=== PATIENT | female | born 1950 | race Caucasian/White ===

== ENCOUNTER 2022-12-26 13:25 | Inpatient (IN) | payer MEDICARE, BC ==
[~2022-12-26] VITALS: Ht 160 cm; Wt 56.7 kg
[2022-12-26 14:16] VITALS: BP 130/47
[2022-12-26] MEDS ORDERED: MAGNESIUM HYDROXIDE 30 ML LIQUID UDC PO PRN (15:30)
[2022-12-26] MEDS ORDERED: REMEDY ESSENTIAL ZINC PASTE 113 GM TP PRN ×2 (15:30→15:45)
[2022-12-26] MEDS ORDERED: TEMAZEPAM 15 MG CAPSULE PO PRN (15:30)
[2022-12-26] MEDS ORDERED: ONDANSETRON 4 MG/2 ML VIAL IV PRN (15:30)
[2022-12-26] MEDS ORDERED: MAG30ORA GT (16:24)
[2022-12-26] MEDS ORDERED: ENOX40DI SQ (16:24)
[2022-12-26] MEDS ORDERED: MORP2VIA IV (16:24)
[2022-12-26] MEDS ORDERED: MORP10SY2 IJ (16:24)
[2022-12-26] MEDS ORDERED: MAGN400O6 PO (16:24)
[2022-12-26] MEDS ORDERED: ACET-2154 PO (16:24)
[2022-12-26] MEDS ORDERED: HYDR-3980 PO (16:24)
[2022-12-26] MEDS ORDERED: METH10TA7 PO (18:43)
[2022-12-26] MEDS ORDERED: DILT120C87 PO (18:43)
[2022-12-26] MEDS ORDERED: ESCI10TA PO (18:43)
--- NOTE | 2022-12-26 18:52 | NUR ---
1320-ADMITTED THIS 72 Y/O FEMALE PATIENT FROM [facility] UNDER THE CARE OF DR. APPIAH. PATIENT WAS BROUGHT VIA REG. AMBULANCE. PLACED IN ROOM 307,. [place]. TRANSFER FROM [facility] TO BED WELL W/O C/O ANY PAIN OR DISCOMFORT. PATIENT IS FLUENT IN BULGARIAN, A/OX4, GOOD HISTORIAN AND PLEASANT TO CONVERSE WITH. 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 PATIENT WEARS EYE GLASSES FOR READING. ABDOMEN SOFT AND NON DISTENDED WITH REGULAR BS PRESENT IN ALL QUADRANTS. PATIENT DENIES GI DISCOMFORT, N/V. PATIENT UNDERWENT A S/P IM NAILING DUE TO S/P GROUND LEVEL FALL AND RT HIP COMMINUTED INTERTROCHANTERIC Fx (Sx ON 12/24/[address] OLVERA) PATIENT HAS HX OF RT BREAST CA/Sx/RADIATION 2010, TACHYCARDIA, ANXIETY AND HYPERTHYROIDISM. COMPLETE BODY CHECK ASSESSMENT DONE. HAS RT HIP #1 SURGICAL SITE WITH [address], #2 SURGICAL SITE WITH [address] AND #3 SURGICAL SITE WITH [address] PICTURES TO AFFECTED RT HIP SURGICAL SITES TAKEN AND FILED UNDER PROG. TAB IN PT'S CHART. OTHER THAN THAT PATIENT'S SKIN IS CLEAR. PATIENT STATES TO BE CONTINENT OF BOTH AND BE ABLE TO NOTIFY HER NEEDS PROMPTLY AND TIMELY. PER PATIENT SHE WILL REQUEST FOR THE BED PAIN IF NEEDED. ORIENTED TO FAC. & SURROUNDINGS. ENCOURAGED PATIENT TO USE CALL LIGHT FOR HELP WHEN NEEDED WITH GOOD UNDERSTANDING.
[2022-12-26] MEDS: ACETAMINOPHEN 325 MG TABLET PO PRN (22:18)
[2022-12-27 02:21] VITALS: BP 158/60
[2022-12-27 05:06] VITALS: BP 144/52
[2022-12-27] MEDS: PANTOPRAZOLE SODIUM 40 MG TABLET.DR PO SCH (06:24)
[2022-12-27 06:39] LABS: MEAN CORPUSCULAR HEMOGLOBIN 27.1 uug (24.7-32.8); MEAN CORPUSCULAR VOLUME 79.5 fL (75.5-95.3); PLATELET COUNT (AUTO) 301 K/uL (179-408)
--- NOTE | 2022-12-27 07:04 | NUR ---
Patient has a consistently high in the 120"s, she states she needs her thyroid medicine along with her beta blockers.
[2022-12-27 07:06] LABS: CARBON DIOXIDE 28 mmol/L (21-32); CHLORIDE 103 mmol/L (98-107); CREATININE 0.3 mg/dL (0.6-1.3); GLUCOSE 99 mg/dL (74-106); MAGNESIUM 1.8 mg/dL (1.8-2.4); PHOSPHOROUS 3.3 mg/dL (2.5-4.9); POTASSIUM 3.5 mmol/L (3.5-5.1); UREA NITROGEN, BLOOD 10 mg/dL (7-18)
[2022-12-27 07:46] VITALS: BP 153/69
[2022-12-27] MEDS: DILTIAZEM HCL CD 120 MG CAP.SR.24H PO SCH (08:37)
[2022-12-27] MEDS: ENOXAPARIN SODIUM 40 MG/0.4 ML DISP.SYRIN SQ SCH (08:37)
[2022-12-27] MEDS: HYDROCODONE/APAP 5-325MG TABLET PO PRN (08:39)
[2022-12-27] MEDS: METHIMAZOLE 5 MG TABLET PO SCH (08:48)
--- NOTE | 2022-12-27 09:29 | NUR ---
0730-Awake, A/Ox4; verbally communicative, denies pain at this time, call light within reach. Safety measures in place. 0800-Assisted patient with bed lozada/diaper changed, perineal care provided. Handled gently and carefully during care. Surgical sites to rt hip intact with DD in place, no s/s of bleeding noted. 0900-Scheduled medications administered, no ASE. Patient continues eating her breakfast; oral fluids taken well. Will continue monitor. Call light within reach, reminded and encouraged to use it for help every time needed with good understanding.
[2022-12-27 16:00] VITALS: BP 147/46
[2022-12-27] MEDS: ACETAMINOPHEN 325 MG TABLET PO PRN (16:44)
--- NOTE | 2022-12-27 17:42 | NUR ---
1747-Patient with low grade fever 99.7, denies any chills, aches, sore throat; denies bladder discomfort, urine yellow clear, no foul odor. Medicated patient with Tylenol PRN for mild pain as ordered by MD, oral fluids encouraged as rita. ice compress provided. Will continue to monitor. 1727-Temperature double check and 99.2, notified CLAIMS MANAGER Sean Chu covering for the shift. Per CLAIMS MANAGER to monitor patient and to get a UA. Order noted. Pending UA sample collection. Patient had a wet diaper and changed.
[2022-12-27 21:07] LABS: *BILIRUBIN,URIN NEGATIVE (NEGATIVE); *CLARITY,URINE CLEAR (CLEAR); *COLOR,URINE YELLOW (YELLOW); *KETONES,URINE NEGATIVE (NEGATIVE); LEUKOCYTE ESTERASE ,URINE 1+ (NEGATIVE); NITRITE, URINE NEGATIVE (NEGATIVE); UGLUCOSE NEGATIVE (NEGATIVE)
[2022-12-27 21:14] LABS: *BLOOD, URINE 1+ (NEGATIVE)
[2022-12-28] MEDS: PANTOPRAZOLE SODIUM 40 MG TABLET.DR PO SCH (06:13)
--- NOTE | 2022-12-28 07:36 | NUR ---
RN NOTE - Pt slept intermittently. Pt denies pain but did request a sleeping pill to help her sleep. All routine and PRN meds given per Orders. call light within reach and all Safety measures in place.Surgical sites to rt hip intact with DD in place, no s/s of bleeding noted. 0440 - Pt was assisted with bed diaper change and she had BM X 2 on this shift. perineal care provided. Handled gently. 0742: Pt care and shift report transferred to KARL Carey
[2022-12-28 07:42] VITALS: BP 136/43
[2022-12-28] MEDS: DILTIAZEM HCL CD 120 MG CAP.SR.24H PO SCH (09:46)
[2022-12-28] MEDS: METHIMAZOLE 5 MG TABLET PO SCH (09:46)
[2022-12-28] MEDS: ENOXAPARIN SODIUM 40 MG/0.4 ML DISP.SYRIN SQ SCH (09:50)
[2022-12-28] MEDS: HYDROCODONE/APAP 5-325MG TABLET PO PRN (10:53)
[2022-12-28] MEDS: CEphaleXIN 500 MG CAPSULE PO SCH ×2 (14:16→21:25)
[2022-12-28 16:00] VITALS: BP 138/47
[2022-12-28] MEDS: ACETAMINOPHEN 325 MG TABLET PO PRN (17:14)
[2022-12-28] MEDS ORDERED: MIRALAX 17 GM POWD.PACK PO PRN (18:00)
[2022-12-28 20:00] VITALS: BP 126/40
[2022-12-28] MEDS: DOCUSATE SODIUM 100 MG CAPSULE PO SCH (20:39)
[2022-12-29 04:00] VITALS: BP 138/53
[2022-12-29] MEDS: CEphaleXIN 500 MG CAPSULE PO SCH ×3 (06:29→21:44)
[2022-12-29] MEDS: PANTOPRAZOLE SODIUM 40 MG TABLET.DR PO SCH (06:29)
[2022-12-29 06:55] LABS: MEAN CORPUSCULAR HEMOGLOBIN 26.9 uug (24.7-32.8); MEAN CORPUSCULAR VOLUME 80.3 fL (75.5-95.3); PLATELET COUNT (AUTO) 395 K/uL (179-408)
--- NOTE | 2022-12-29 07:25 | NUR ---
Nursing notes, Patient is in room ,awake, sitting in bed, with bright affect, denies pain or discomforts at this time. fall and safety precautions implemented, will continue to monitor.
[2022-12-29 07:48] VITALS: BP 140/53
[2022-12-29 07:59] LABS: THYROID STIMULATING HORMONE < 0.007 mIU/mL (0.358-3.740)
[2022-12-29 08:25] LABS: ALANINE AMINOTRANSFERASE 49 U/L (14-59); ALKALINE PHOSPHATASE 153 U/L (50-136); ASPARTATE AMINOTRANSFERASE 26 U/L (15-37); BILIRUBIN,TOTAL 1.1 mg/dL (0.2-1.0); CARBON DIOXIDE 29 mmol/L (21-32); CHLORIDE 103 mmol/L (98-107); CHOLESTEROL 77 mg/dL (<200); CREATININE 0.4 mg/dL (0.6-1.3); GLUCOSE 106 mg/dL (74-106); HDL CHOLESTEROL 41 mg/dL (40-60); PHOSPHOROUS 3.1 mg/dL (2.5-4.9); POTASSIUM 3.6 mmol/L (3.5-5.1); TOTAL PROTEIN, SERUM 6.2 g/dL (6.4-8.2); TRIGLYCERIDES 42 MG/DL (30-150); UREA NITROGEN, BLOOD 11 mg/dL (7-18)
[2022-12-29] MEDS: ESCITALOPRAM OXALATE 10 MG TABLET PO SCH (09:13)
[2022-12-29] MEDS: METHIMAZOLE 5 MG TABLET PO SCH (09:13)
[2022-12-29] MEDS: DILTIAZEM HCL CD 120 MG CAP.SR.24H PO SCH (09:15)
[2022-12-29] MEDS: HYDROCODONE/APAP 5-325MG TABLET PO PRN (09:30)
[2022-12-29] MEDS: ENOXAPARIN SODIUM 30 MG/0.3 ML DISP.SYRIN SUBCUT SCH (09:32)
[2022-12-29] MEDS: GLUCERNA SHAKE 237 ML CAN PO SCH (09:33)
[2022-12-29] MEDS: PROTEIN SUPPLEMENT (PROSTAT) 30 ML LIQUID PO SCH (09:33)
--- NOTE | 2022-12-29 10:00 | NUR ---
Nursing notes: Patient HGB 7.[address] Huggins, per doctor will review labs and enter orders, will continue Lovenox 30mcg SQ as new ordered. Patient denies any bleeding and no S/S of bleeding noted at this time. Will continue to monitor.
[2022-12-29 10:12] LABS: MAGNESIUM 1.9 mg/dL (1.8-2.4)
[2022-12-29 10:40] LABS: IRON, SERUM 22 ug/dL (50-175)
[2022-12-29] MEDS ORDERED: ONDANSETRON HCL 4 MG TABLET PO PRN (11:00)
--- NOTE | 2022-12-29 12:19 | NUR ---
INDIVIDUALIZED PLAN OF CARE
--- NOTE | 2022-12-29 12:21 | NUR ---
Nurses notes: Patient is eating lunch at this time, no S/S of distress, or discomfort, patient denies pain, family at her side. Patient is medication compliant and cooperative with treatment of ARU. Patient taken to the bathroom x 2 via W/C, tolerated well. Fall and safety precaution implemented, emotional support provided.
--- NOTE | 2022-12-29 13:55 | NUR ---
INTERDISCIPLINARY TEAM CONFERENCE
[2022-12-29 15:48] VITALS: BP 124/44
[2022-12-29 19:57] VITALS: BP 133/53
[2022-12-29] MEDS: DOCUSATE SODIUM 100 MG CAPSULE PO SCH (20:30)
[2022-12-30 05:14] VITALS: BP 138/42
[2022-12-30] MEDS: PANTOPRAZOLE SODIUM 40 MG TABLET.DR PO SCH (05:18)
[2022-12-30] MEDS: CEphaleXIN 500 MG CAPSULE PO SCH ×3 (05:18→21:33)
[2022-12-30 07:01] LABS: HEMATOCRIT 23.1 % (31.2-41.9); MEAN CORPUSCULAR HEMOGLOBIN 26.6 uug (24.7-32.8); PLATELET COUNT (AUTO) 437 K/uL (179-408)
[2022-12-30 07:23] LABS: CARBON DIOXIDE 30 mmol/L (21-32); CHLORIDE 103 mmol/L (98-107); CREATININE 0.4 mg/dL (0.6-1.3); GLUCOSE 100 mg/dL (74-106); MAGNESIUM 2.1 mg/dL (1.8-2.4); PHOSPHOROUS 3.7 mg/dL (2.5-4.9); POTASSIUM 3.9 mmol/L (3.5-5.1); UREA NITROGEN, BLOOD 12 mg/dL (7-18)
[2022-12-30 07:45] LABS: THYROID STIMULATING HORMONE < 0.007 mIU/mL (0.358-3.740)
[2022-12-30 08:00] VITALS: BP 127/53
[2022-12-30] MEDS: DILTIAZEM HCL CD 120 MG CAP.SR.24H PO SCH (08:32)
[2022-12-30] MEDS: HYDROCODONE/APAP 10-325 MG TABLET PO PRN ×2 (08:32→14:38)
[2022-12-30] MEDS: ESCITALOPRAM OXALATE 10 MG TABLET PO SCH (08:32)
[2022-12-30] MEDS: GLUCERNA SHAKE 237 ML CAN PO SCH (08:33)
[2022-12-30] MEDS: PROTEIN SUPPLEMENT (PROSTAT) 30 ML LIQUID PO SCH (08:33)
[2022-12-30] MEDS: METHIMAZOLE 5 MG TABLET PO SCH (08:34)
[2022-12-30] MEDS: ENOXAPARIN SODIUM 30 MG/0.3 ML DISP.SYRIN SUBCUT SCH (08:34)
--- NOTE | 2022-12-30 10:00 | NUR ---
0730-Rec'd patient in bed, awake, A/oX4, verbally communicative, no respiratory distress. Patient denies pain at this time. Encouraged to use call light for help every time needed. 0900-Scheduled medication administered as ordered; no ASE noted, oral fluids taken well; medicated for pain PRN as ordered by MD & based on pain level needs.
[2022-12-30 15:54] VITALS: BP 130/55
--- NOTE | 2022-12-30 19:23 | NUR ---
Patient alert, OX4, able to verbalize her needs and follow directions. Patient OOB during shift with rehab for PT/OT skilled services as ordered. Patient actively able to participate in therapy and doing well. Patient is cooperative with her care/Tx, requires extensive assist with ADLs. Care provided at routine intervals and PRN. Medicated PRN for pain based on pain level needs/ordered by MD. All needs attended well and met. No PEDRO during shift. Endorsed to incoming relieving NOC RN.
[2022-12-30] MEDS: DOCUSATE SODIUM 100 MG CAPSULE PO SCH (20:10)
[2022-12-30 20:30] VITALS: BP 112/56
[2022-12-30] MEDS: ACETAMINOPHEN 325 MG TABLET PO PRN (22:01)
[2022-12-31 04:54] VITALS: BP 137/47
[2022-12-31] MEDS: CEphaleXIN 500 MG CAPSULE PO SCH ×3 (05:46→21:26)
[2022-12-31] MEDS: PANTOPRAZOLE SODIUM 40 MG TABLET.DR PO SCH (05:46)
--- NOTE | 2022-12-31 06:39 | NUR ---
No significant event reported all night. All needs attended and met. Continue current rehab plan of care.
--- NOTE | 2022-12-31 06:40 | NUR ---
No significant event reported all night. All needs attended and met. Continue current rehab plan of care.
--- NOTE | 2022-12-31 07:05 | NUR ---
patient in his room, lying in bed awake at this time with no S/S of discomforts noted, fall and safety precautions implemented. will continue to monitor.
[2022-12-31 08:00] VITALS: BP 142/42
[2022-12-31] MEDS: DILTIAZEM HCL CD 120 MG CAP.SR.24H PO SCH (08:07)
[2022-12-31] MEDS: ESCITALOPRAM OXALATE 10 MG TABLET PO SCH (08:07)
[2022-12-31] MEDS: GLUCERNA SHAKE 237 ML CAN PO SCH (08:08)
[2022-12-31] MEDS: METHIMAZOLE 5 MG TABLET PO SCH (08:08)
[2022-12-31] MEDS: PROTEIN SUPPLEMENT (PROSTAT) 30 ML LIQUID PO SCH (08:08)
[2022-12-31] MEDS: ENOXAPARIN SODIUM 30 MG/0.3 ML DISP.SYRIN SUBCUT SCH (08:09)
[2022-12-31] MEDS: FERROUS SULFATE 325 MG TABEC PO SCH (08:20)
[2022-12-31] MEDS: ACETAMINOPHEN 325 MG TABLET PO PRN (10:36)
[2022-12-31 16:11] VITALS: BP 133/43
[2022-12-31] MEDS: DOCUSATE SODIUM 100 MG CAPSULE PO SCH (20:21)
[2022-12-31 20:43] VITALS: BP 143/52
[2023-01-01 03:59] VITALS: BP 138/40
[2023-01-01] MEDS: CEphaleXIN 500 MG CAPSULE PO SCH (05:57)
[2023-01-01] MEDS: PANTOPRAZOLE SODIUM 40 MG TABLET.DR PO SCH (05:57)
--- NOTE | 2023-01-01 06:15 | NUR ---
Uneventful night. Slept good, no complaint of pain/discomforts presented. All needs attended and met. Vs stable. Continue current rehab plan of care.
--- NOTE | 2023-01-01 07:00 | NUR ---
pt received in bed awake ,no c/o pain noted vs are stable call light with in reach
[2023-01-01] MEDS: PROTEIN SUPPLEMENT (PROSTAT) 30 ML LIQUID PO SCH (08:00)
[2023-01-01 08:04] VITALS: BP 124/46
[2023-01-01] MEDS: GLUCERNA SHAKE 237 ML CAN PO SCH (08:19)
[2023-01-01] MEDS: ESCITALOPRAM OXALATE 10 MG TABLET PO SCH (08:19)
[2023-01-01] MEDS: METHIMAZOLE 5 MG TABLET PO SCH (08:19)
[2023-01-01] MEDS: DILTIAZEM HCL CD 120 MG CAP.SR.24H PO SCH (08:19)
[2023-01-01] MEDS: FERROUS SULFATE 325 MG TABEC PO SCH (08:19)
[2023-01-01] MEDS: ENOXAPARIN SODIUM 30 MG/0.3 ML DISP.SYRIN SUBCUT SCH (08:20)
--- NOTE | 2023-01-01 12:30 | NUR ---
Patient is eating lunch at this time, no S/S of distress, or discomfort, patient denies pain, family at her side. Fall and safety precaution implemented,
--- NOTE | 2023-01-01 15:42 | NUR ---
Seen by physical therapist, ambulated using FWW as tolerated
[2023-01-01 16:36] VITALS: BP 129/54
[2023-01-01] MEDS: DOCUSATE SODIUM 100 MG CAPSULE PO SCH (20:13)
[2023-01-01 20:17] VITALS: BP 133/58
[2023-01-02 04:12] VITALS: BP 124/58
[2023-01-02] MEDS: PANTOPRAZOLE SODIUM 40 MG TABLET.DR PO SCH (05:59)
--- NOTE | 2023-01-02 07:10 | NUR ---
patient in her room, lying in bed awake at this time with no S/S of discomforts noted, fall and safety precautions implemented. will continue to monitor.
[2023-01-02] MEDS: ESCITALOPRAM OXALATE 10 MG TABLET PO SCH (08:11)
[2023-01-02] MEDS: GLUCERNA SHAKE 237 ML CAN PO SCH (08:11)
[2023-01-02] MEDS: DILTIAZEM HCL CD 120 MG CAP.SR.24H PO SCH (08:11)
[2023-01-02] MEDS: FERROUS SULFATE 325 MG TABEC PO SCH (08:11)
[2023-01-02] MEDS: METHIMAZOLE 5 MG TABLET PO SCH (08:11)
[2023-01-02] MEDS: ENOXAPARIN SODIUM 30 MG/0.3 ML DISP.SYRIN SUBCUT SCH (08:11)
[2023-01-02] MEDS: PROTEIN SUPPLEMENT (PROSTAT) 30 ML LIQUID PO SCH (08:12)
[2023-01-02 08:23] VITALS: BP 140/49
[2023-01-02] MEDS: ACETAMINOPHEN 325 MG TABLET PO PRN ×2 (12:57→21:39)
[2023-01-02 16:01] VITALS: BP 130/58
[2023-01-02] MEDS: DOCUSATE SODIUM 100 MG CAPSULE PO SCH (20:05)
[2023-01-02 20:25] VITALS: BP 142/43
[2023-01-03 04:22] VITALS: BP 129/51
[2023-01-03] MEDS: PANTOPRAZOLE SODIUM 40 MG TABLET.DR PO SCH (05:59)
--- NOTE | 2023-01-03 06:11 | NUR ---
No significant event reported all night. Medicated once for pain/discomforts with relief. No further complaint presented. All needs attended and met. Continue current rehab plan of care.
[2023-01-03 08:00] VITALS: BP 123/49
[2023-01-03] MEDS: PROTEIN SUPPLEMENT (PROSTAT) 30 ML LIQUID PO SCH (08:00)
[2023-01-03] MEDS: METHIMAZOLE 5 MG TABLET PO SCH (08:25)
[2023-01-03] MEDS: FERROUS SULFATE 325 MG TABEC PO SCH (08:25)
[2023-01-03] MEDS: DILTIAZEM HCL CD 120 MG CAP.SR.24H PO SCH (08:25)
[2023-01-03] MEDS: ESCITALOPRAM OXALATE 10 MG TABLET PO SCH (08:25)
[2023-01-03] MEDS: GLUCERNA SHAKE 237 ML CAN PO SCH (08:26)
[2023-01-03] MEDS: ENOXAPARIN SODIUM 30 MG/0.3 ML DISP.SYRIN SUBCUT SCH (08:27)
--- NOTE | 2023-01-03 11:00 | NUR ---
Seen by physical therapist, ambulated using FWW as tolerated
[2023-01-03] MEDS: ACETAMINOPHEN 325 MG TABLET PO PRN (14:01)
--- NOTE | 2023-01-03 14:02 | NUR ---
patient in his room, lying in bed awake at this time with no S/S of discomforts noted, fall and safety precautions implemented. will continue to monitor. at bed side
[2023-01-03 15:21] VITALS: BP 132/45
[2023-01-03 20:02] VITALS: BP 127/43
[2023-01-03] MEDS: DOCUSATE SODIUM 100 MG CAPSULE PO SCH (20:39)
[2023-01-04 04:00] VITALS: BP 128/50
[2023-01-04] MEDS: PANTOPRAZOLE SODIUM 40 MG TABLET.DR PO SCH (05:58)
--- NOTE | 2023-01-04 06:24 | NUR ---
Medicated once for pain with relief. No further complaint presented after. Slept good. No significant event reported all night. Continue care as planned,.
[2023-01-04 07:49] VITALS: BP 137/49
[2023-01-04] MEDS: PROTEIN SUPPLEMENT (PROSTAT) 30 ML LIQUID PO SCH (08:00)
[2023-01-04] MEDS: METHIMAZOLE 5 MG TABLET PO SCH (08:01)
[2023-01-04] MEDS: GLUCERNA SHAKE 237 ML CAN PO SCH (08:01)
[2023-01-04] MEDS: DILTIAZEM HCL CD 120 MG CAP.SR.24H PO SCH (08:01)
[2023-01-04] MEDS: FERROUS SULFATE 325 MG TABEC PO SCH (08:01)
[2023-01-04] MEDS: ESCITALOPRAM OXALATE 10 MG TABLET PO SCH (08:01)
[2023-01-04] MEDS: ENOXAPARIN SODIUM 30 MG/0.3 ML DISP.SYRIN SUBCUT SCH (08:10)
--- NOTE | 2023-01-04 10:00 | NUR ---
Seen by physical therapist, ambulated using FWW as tolerated
[2023-01-04 15:19] VITALS: BP 122/42
[2023-01-04] MEDS: ACETAMINOPHEN 325 MG TABLET PO PRN (18:13)
[2023-01-04] MEDS: DOCUSATE SODIUM 100 MG CAPSULE PO SCH (20:06)
[2023-01-04 20:37] VITALS: BP 120/38
--- NOTE | 2023-01-05 01:52 | NUR ---
Sleeping, appears comfortable call light with in reach
[2023-01-05 04:59] VITALS: BP 138/48
[2023-01-05] MEDS: PANTOPRAZOLE SODIUM 40 MG TABLET.DR PO SCH (06:00)
--- NOTE | 2023-01-05 06:26 | NUR ---
No significant event reported all night. All needs attended and met. Continue current rehab plan of care.
[2023-01-05 08:00] VITALS: BP 147/62
[2023-01-05] MEDS: METHIMAZOLE 5 MG TABLET PO SCH (08:49)
[2023-01-05] MEDS: ESCITALOPRAM OXALATE 10 MG TABLET PO SCH (08:49)
[2023-01-05] MEDS: FERROUS SULFATE 325 MG TABEC PO SCH (08:49)
[2023-01-05] MEDS: ENOXAPARIN SODIUM 30 MG/0.3 ML DISP.SYRIN SUBCUT SCH (08:50)
[2023-01-05] MEDS: DILTIAZEM HCL CD 120 MG CAP.SR.24H PO SCH (08:52)
[2023-01-05] MEDS: PROTEIN SUPPLEMENT (PROSTAT) 30 ML LIQUID PO SCH (08:58)
[2023-01-05] MEDS: GLUCERNA SHAKE 237 ML CAN PO SCH (08:58)
--- NOTE | 2023-01-05 11:00 | NUR ---
INTERDISCIPLINARY TEAM CONFERENCE
[2023-01-05] MEDS: ACETAMINOPHEN 325 MG TABLET PO PRN (12:58)
[2023-01-05 16:00] VITALS: BP 128/72
--- NOTE | 2023-01-05 19:00 | NUR ---
pt received in bed awake ,no c/o pain noted vs are stable call light with in reach
[2023-01-05 19:35] VITALS: BP 150/54
--- NOTE | 2023-01-05 19:56 | NUR ---
RECEIVED REPORT FROM [facility] SHIFT CLINICAL TRAINING SPECIALIST. PATIENT IS ALERT AND ORIENTED X4 AND SPEAKS MONGOLIAN. VITAL SIGNS STABLE. PATIENT TOLERATES PO MEDICATIONS AND DIET WELL. PATIENT HAD COMPLAINT OF PAIN. RN GAVE MEDICATIONS ORDERED. PATIENT EXPRESSES RELIEF. PATIENT PARTICIPATES WITH PHYSICAL AND OCCUPATIONAL THERAPY SCHEDULED. PATIENT'S FAMILY VISITED. NO ACUTE DISTRESS NOTED. CALL LIGHT WITHIN REACH. FALL PRECAUTIONS OBSERVED. RN ENDORSED CARE TO [facility] SHIFT NURSE FOR CONTINUATION OF CARE.
[2023-01-05] MEDS: DOCUSATE SODIUM 100 MG CAPSULE PO SCH (20:02)
--- NOTE | 2023-01-05 23:10 | NUR ---
sleeping in her bed comfortably
[2023-01-06 04:09] VITALS: BP 126/42
[2023-01-06] MEDS: PANTOPRAZOLE SODIUM 40 MG TABLET.DR PO SCH (06:00)
--- NOTE | 2023-01-06 06:15 | NUR ---
No significant event reported all night. All needs attended and met. Continue current rehab plan of care.
[2023-01-06 08:00] VITALS: BP 141/51
[2023-01-06] MEDS: PROTEIN SUPPLEMENT (PROSTAT) 30 ML LIQUID PO SCH (08:04)
[2023-01-06] MEDS: FERROUS SULFATE 325 MG TABEC PO SCH (08:32)
[2023-01-06] MEDS: DILTIAZEM HCL CD 120 MG CAP.SR.24H PO SCH (08:32)
[2023-01-06] MEDS: METHIMAZOLE 5 MG TABLET PO SCH (08:32)
[2023-01-06] MEDS: GLUCERNA SHAKE 237 ML CAN PO SCH (08:32)
[2023-01-06] MEDS: ESCITALOPRAM OXALATE 10 MG TABLET PO SCH (08:32)
[2023-01-06] MEDS: ENOXAPARIN SODIUM 30 MG/0.3 ML DISP.SYRIN SUBCUT SCH (08:34)
[2023-01-06] MEDS: ACETAMINOPHEN 325 MG TABLET PO PRN (10:00)
--- NOTE | 2023-01-06 19:05 | NUR ---
pt received in bed awake ,no c/o pain noted vs are stable call light with in reach
[2023-01-06 20:00] VITALS: BP 131/43
[2023-01-06] MEDS: DOCUSATE SODIUM 100 MG CAPSULE PO SCH (20:01)
--- NOTE | 2023-01-07 00:02 | NUR ---
Sleeping, appears comfortable
[2023-01-07 04:00] VITALS: BP 131/44
--- NOTE | 2023-01-07 05:05 | NUR ---
patient in her room, lying in bed awake at this time with no S/S of discomforts noted, fall and safety precautions implemented. will continue to monitor.
[2023-01-07] MEDS: PANTOPRAZOLE SODIUM 40 MG TABLET.DR PO SCH (06:01)
[2023-01-07 07:44] VITALS: BP 131/56
[2023-01-07] MEDS: PROTEIN SUPPLEMENT (PROSTAT) 30 ML LIQUID PO SCH (08:05)
[2023-01-07] MEDS: ESCITALOPRAM OXALATE 10 MG TABLET PO SCH (08:37)
[2023-01-07] MEDS: FERROUS SULFATE 325 MG TABEC PO SCH (08:37)
[2023-01-07] MEDS: METHIMAZOLE 5 MG TABLET PO SCH (08:37)
[2023-01-07] MEDS: DILTIAZEM HCL CD 120 MG CAP.SR.24H PO SCH (08:37)
[2023-01-07] MEDS: ENOXAPARIN SODIUM 30 MG/0.3 ML DISP.SYRIN SUBCUT SCH (08:39)
[2023-01-07] MEDS: GLUCERNA SHAKE 237 ML CAN PO SCH (08:40)
--- NOTE | 2023-01-07 10:00 | NUR ---
Bilateral blanchable heels on assessment.
[2023-01-07 15:45] VITALS: BP 134/58
[2023-01-07] MEDS: ACETAMINOPHEN 325 MG TABLET PO PRN (16:05)
[2023-01-07 20:33] VITALS: BP 126/47
[2023-01-07] MEDS: DOCUSATE SODIUM 100 MG CAPSULE PO SCH (20:52)
--- NOTE | 2023-01-08 03:07 | NUR ---
AAOx4 Ambulates with walker to the BR. S/P right hip IM nailing by Dr Saha (12/24) Right hip incision clean dry and intact. Incision healing, liz out. Denies any pain nor any discomfort. All needs attended. Possible d/c today. No acute distress noted. VSS.
[2023-01-08 04:00] VITALS: BP 134/47
[2023-01-08] MEDS: PANTOPRAZOLE SODIUM 40 MG TABLET.DR PO SCH (06:11)
[2023-01-08] MEDS: PROTEIN SUPPLEMENT (PROSTAT) 30 ML LIQUID PO SCH (08:14)
[2023-01-08 08:15] VITALS: BP 147/60
[2023-01-08] MEDS: FERROUS SULFATE 325 MG TABEC PO SCH (08:16)
[2023-01-08] MEDS: METHIMAZOLE 5 MG TABLET PO SCH (08:16)
[2023-01-08] MEDS: DILTIAZEM HCL CD 120 MG CAP.SR.24H PO SCH (08:16)
[2023-01-08] MEDS: ESCITALOPRAM OXALATE 10 MG TABLET PO SCH (08:16)
[2023-01-08] MEDS: GLUCERNA SHAKE 237 ML CAN PO SCH (08:17)
[2023-01-08] MEDS: ENOXAPARIN SODIUM 30 MG/0.3 ML DISP.SYRIN SUBCUT SCH (08:20)
[2023-01-08] MEDS: ACETAMINOPHEN 325 MG TABLET PO PRN (09:22)
[2023-01-08 16:13] VITALS: BP 120/37
--- NOTE | 2023-01-08 19:32 | NUR ---
RECEIVED REPORT FROM [facility] SHIFT NURSE. PATIENT IS ALERT AND ORIENTED X4 AND SPEAKS DIVEHI. VITAL SIGNS STABLE. PATIENT TOLERATES PO MEDICATIONS AND DIET WELL. PATIENT HAD COMPLAINT OF PAIN. RN GAVE MEDICATIONS ORDERED. PATIENT EXPRESSES RELIEF. PATIENT PARTICIPATES WITH PHYSICAL AND OCCUPATIONAL THERAPY SCHEDULED. PATIENT'S FAMILY VISITED. NO S/S OF INFECTION AT INCISION SITE. NO ACUTE DISTRESS NOTED. CALL LIGHT WITHIN REACH. FALL PRECAUTIONS OBSERVED. RN ENDORSED CARE TO [facility] SHIFT NURSE FOR CONTINUATION OF CARE.
[2023-01-08 20:40] VITALS: BP 138/49
[2023-01-08] MEDS: DOCUSATE SODIUM 100 MG CAPSULE PO SCH (21:00)
[2023-01-09 04:00] VITALS: BP 132/51
[2023-01-09] MEDS: PANTOPRAZOLE SODIUM 40 MG TABLET.DR PO SCH (06:21)
--- NOTE | 2023-01-09 06:42 | NUR ---
Patient in bed awake, AO x4, no complain of pain, no noted respiratory distress. Rt hip/thigh/knee incision intact, no gaping noted. Needs assessed and attended to.
[2023-01-09 07:33] VITALS: BP 143/50
[2023-01-09] MEDS: FERROUS SULFATE 325 MG TABEC PO SCH (08:14)
[2023-01-09 08:15] VITALS: BP 143/50
[2023-01-09] MEDS: DILTIAZEM HCL CD 120 MG CAP.SR.24H PO SCH (08:15)
[2023-01-09] MEDS: ESCITALOPRAM OXALATE 10 MG TABLET PO SCH (08:15)
[2023-01-09] MEDS: METHIMAZOLE 5 MG TABLET PO SCH (08:16)
[2023-01-09] MEDS: ENOXAPARIN SODIUM 30 MG/0.3 ML DISP.SYRIN SUBCUT SCH (08:17)
[2023-01-09] MEDS: PROTEIN SUPPLEMENT (PROSTAT) 30 ML LIQUID PO SCH (08:19)
[2023-01-09] MEDS: GLUCERNA SHAKE 237 ML CAN PO SCH (08:20)
--- NOTE | 2023-01-09 14:22 | NUR ---
Pt left floor via WC pushed by RN, VSS stable. No s/s of distress or SOB noted. Accompanied by daughter and to private vehicle. Assisted into car by RN. All discharge questions answered, material provided. Pt has all belongings, valuables and home medications. Pt smiled and clapped when leaving her room.
== END 2023-01-09 14:30 | disposition home health service (06) | DRG 559 ==
PROVIDERS: ADMIT Physical Medicine & Rehabilitation Pain Medicine; ATTEND Physical Medicine & Rehabilitation Pain Medicine
DX: S72.141D Displaced intertrochanteric fracture of right femur, subsequent encounter for closed fracture with routine healing (principal); E43 Unspecified severe protein-calorie malnutrition; N39.0 Urinary tract infection, site not specified; D68.59 Other primary thrombophilia; W18.30XD Fall on same level, unspecified, subsequent encounter; D63.8 Anemia in other chronic diseases classified elsewhere; I10 Essential (primary) hypertension; Z85.3 Personal history of malignant neoplasm of breast; Z92.3 Personal history of irradiation; E61.1 Iron deficiency; E05.90 Thyrotoxicosis, unspecified without thyrotoxic crisis or storm
CPT/HCPCS: 36415; 73502; 83550; 83735; 84100; 84443; 85025; 97535-GO-CO; A4663; A6213; J1650